=== PATIENT | male | born 1990 | race Caucasian/White ===

== ENCOUNTER 2019-09-02 17:52 | Emergency (ER) | payer SELFPAY ==
[~2019-09-02] VITALS: Ht 180.3 cm; Wt 66.0 kg
--- NOTE | 2019-09-02 18:15 | NUR ---
THIS IS A 29 YO MALE BIB [facility] [address] [facility]. PATIENT WAS SEEN THERE AND "KICKED OUT FOR BEING BELLIGERENT TO STAFF" PER ROBERTA. PATIENT'S FIANCE CALLED 911 AFTER. PATIENT C/O INCREASED FATIGUE AND "CAN'T FEEL MY HANDS. I FEEL LIKE I CAN'T BREATHE. I ALREADY LOST ONE KIDNEY NOW I'M LOSING MY OTHER, I KNOW WHAT THE SYMPTOMS ARE". PER ROBERTA, FIANCE STATED PATIENT HAS BEEN PASSING OUT THE PAST COUPLE DAYS", ROBERTA STATES "HIS ROOMMATE AND HIM HAD DRANK ALCOHOL AND DID COCAINE EARLIER TODAY". PATIENT DENIES COCAINE USE, STATES "I DRANK HALF OF A FIFTH TODAY". REPIRATIONS EVEN AND SLIGHTLY LABORED, LUNGS SOUNDS DIMINISHED AND INPIRATORY WHEEZES AUSCULTATED THROUGHOUT. ALL MONITORING IN PLACE, NSR ON MONITOR, VSS. CALL LIGHT IN REACH. SPO2 AT 97% ON RA
--- NOTE | 2019-09-02 18:29 | NUR ---
ERP TO ROOM FOR EVAL
--- NOTE | 2019-09-02 18:58 | NUR ---
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
[2019-09-02 19:07] LABS: BASOPHILS # (AUTO) 0.03 x10^3/uL (0-0.1); BASOPHILS % (AUTO) 0 % (0-1); EOSINOPHILS # (AUTO) 0.02 x10^3/uL (0-0.4); EOSINOPHILS % (AUTO) 0 % (1-7); LYMPHOCYTES # (AUTO) 1.75 x10^3/uL (1-3.4); LYMPHOCYTES % (AUTO) 25 % (22-44); MD NO; MEAN CORPUSCULAR HEMOGLOBIN 32.3 pg (27.5-34.5); MEAN CORPUSCULAR HGB CONC 33.5 g/dL (33.2-36.2); MEAN PLATELET VOLUME 9.8 fL (7.4-10.4); MONOCYTES % (AUTO) 7 % (2-9); NEUTROPHILS # (AUTO) 4.84 x10^3/uL (1.8-6.8); NEUTROPHILS % (AUTO) 68 % (42-75); PLATELET COUNT 244 x10^3/uL (130-400); RED CELL DISTRIBUTION WIDTH 12.8 % (9.4-14.8)
[2019-09-02 19:15] LABS: ALANINE AMINOTRANSFERASE 93 U/L (12-78); ALBUMIN 3.6 g/dL (3.4-5.0); ANION GAP 5 mmol/L (5-15); CALCIUM 8.3 mg/dL (8.5-10.1); CHLORIDE 107 mmol/L (98-107); CREATININE 0.91 mg/dL (0.7-1.3)
[2019-09-02 19:19] LABS: ALKALINE PHOSPHATASE 112 U/L (45-117); BILIRUBIN,TOTAL 0.3 mg/dL (0.2-1.0); TOTAL PROTEIN 7.5 g/dL (6.4-8.2)
[2019-09-02 19:50] VITALS: BP 122/71
--- NOTE | 2019-09-02 19:50 | NUR ---
PATIENT UP FOR RECHECK FOR ERP
--- NOTE | 2019-09-02 20:05 | NUR ---
GUSTAVO ([facility]): [phone]
--- NOTE | 2019-09-02 20:50 | NUR ---
Patient given discharge instructions and they have confirmed that they understand the instructions. Patient ambulatory with steady gait. Fiance en route to fern picker patient for safe discharge
== END 2019-09-02 20:56 | disposition home or self-care (01) ==
LOC: EDBD 20:42 → ED 20:42
DX: F10.129 Alcohol abuse with intoxication, unspecified (principal); Z72.9 Problem related to lifestyle, unspecified; R05 Cough; M79.10 Myalgia, unspecified site; Y90.9 Presence of alcohol in blood, level not specified
CPT/HCPCS: 36415; 71045; 80053; 80307; 85025; 99284